=== PATIENT | female | born 1995 | race Caucasian/White ===

== ENCOUNTER 2019-10-08 00:14 | Outpatient (CLI) | payer BC, SELFPAY ==
[2019-10-08 16:46] LABS: SARS-CoV-2 RNA PCR Negative
== END 2019-10-08 00:15 | disposition home or self-care (01) ==
LOC: ANHCOVIDDT 00:14
PROVIDERS: Visit Provider Otolaryngology
DX: Z01.818 Encounter for other preprocedural examination (principal); Z11.59 Encounter for screening for other viral diseases
CPT/HCPCS: 87635; C9803; U0003

== ENCOUNTER 2019-10-11 00:42 | Day surgery (SDC) | payer BC, SELFPAY ==
[2019-10-03 10:27] VITALS: BMI 24.9
--- NOTE | 2019-10-06 06:23 | PM.HPGS ---
History of Present Illness History of Present Illness Consent: Risks, benefits, and alternatives have been discussed and questions answered. Patient agrees to proceed with procedure. Chief complaint: Chronic Tonsilitis Narrative: Aura Mckeon is a 23 year old female Review of Systems ENT: Reports nasal obstruction and Reports sore throat Comments: patient has enlarged tonsils and adenoids snores and mouth breathes repeated episodes of tonsillitis Meds Home Medications and Allergies Home Medications Medication Instructions Recorded Confirmed Type cyanocobalamin (vitamin B-12) 5,000 mcg SUBLINGUAL DAILY 10/03/19 10/03/19 History [Vitamin B-12] Allergies Allergy/AdvReac Type Severity Reaction Status Date / Time Penicillins Allergy Intermediate Rash Verified 10/03/19 10:26 Assessment and Plan Additional Plan Tonsillectomy and adenoidectomy is the plan
[2019-10-11] VITALS (7 sets, daily range): BP systolic 95–127; BP diastolic 56–79; PULSE 63–95; RESP 14–22; TEMP 36.1–37.3; O2SAT 98–100
--- NOTE | 2019-10-11 06:14 | WPDHPUPDATE1 ---
History and Physical Update Update Date/Time: 10/11/19 06:14 History and Physical has been reviewed, including an updated exam of the patient. There are NO changes in the patient's condition. Risks, benefits, and alternatives have been discussed and questions answered. Patient agrees to proceed with procedure.
[2019-10-11] MEDS: LACTATED RINGERS 1,000 ML 30 ML IV CONT (06:38)
--- NOTE | 2019-10-11 06:49 | P.PNAN_ITS ---
Anes - Initial Pre Proc Eval Procedure: Operation Date: 10/11/19 07:30 Proposed Procedures p Tonsillectomy And Adenoidectomy - Antonio Fountain MD Date/Time: 10/11/19 06:49 Surgeon: Antonio Fountain MD Pre Op Diagnosis: Chronic Tonsilitis Patient Data Age: 23 Gender: F Height: 5 ft 5 in Weight: 68 kg Allergies Allergy/AdvReac Type Severity Reaction Status Date / Time Penicillins Allergy Intermediate Rash Verified 10/11/19 06:49 Home Medications Medication Instructions Recorded Confirmed Type cyanocobalamin (vitamin B-12) 5,000 mcg SUBLINGUAL DAILY 10/03/19 10/03/19 History [Vitamin B-12] Patient hx anesthesia problems: none Family hx anesthesia problems: none [facility] Past Medical History Medical History (Updated 10/11/19 @ 06:49 by Jason Vega MD) Tonsillitis Surgical History Surgical History (Updated 10/11/19 @ 06:50 by Jason Vega MD) H/O eye surgery Anes - Eval Final PreProcedure Day of Procedure 10/11/19 06:49 Patient weight: normal Heart: regular rate and rhythm Lungs: clear to auscultation Airway: Mallampati scale class 1 Neurological: alert and oriented Last oral intake: >/= 8 hours ASA classification: I Emergent: no Anesthetic plan: proceed Anesthesia type and monitoring: general ETT and standard monitoring Informed Consent: The patient's anesthetic plan and its attendant risks and benefits were discussed with the patient/family/POA. Questions were solicited and answers provided to the satisfaction of the patient/family/POA.
--- NOTE | 2019-10-11 07:45 | PM.PROC ---
Procedure Note - Detailed Date of procedure: 10/11/19 Pre-op diagnosis: Chronic Tonsilitis Post-op diagnosis: same Procedure performed: Tonsillectomy Description of procedure: Patient was prepped and draped in usual fashion after induction of anesthesia. The McIvor mouth gag was inserted. The tonsils were removed dissection technique hemostasis was obtained electrocautery. The mouth was inspected for bleeding. When stablized patient was awaken and brought to the recovery room in good condition. Anesthesia: GLMA Surgeon: Antonio Fountain MD Estimated blood loss (mL): 15 Drains: No Packing: No Pathology: none sent Complications: No immediate complications Condition: stable Disposition: PACU
== END 2019-10-11 09:28 | disposition home or self-care (01) ==
PROVIDERS: Visit Provider Otolaryngology
PROC: (CPT 42826; principal; 2019-10-11 07:30)
DX: J35.01 Chronic tonsillitis (principal)
CPT/HCPCS: 42826; 88302; 88304; A9270; J0131; J0330; J1100; J1940; J2250; J2405; J2704; J3010; J7120